=== PATIENT | female | born 1990 | race Caucasian/White ===

== ENCOUNTER 2016-09-14 11:42 | Inpatient (IN) | payer OTHER ==
[2016-09-14] VITALS (12 sets, daily range): BP systolic 117–136; BP diastolic 57–81
[~2016-09-14] VITALS: Ht 167.6 cm; Wt 108.2 kg
[~2016-09-14 11:42] MED LIST: ADVAIR 100-501 EACH IH; MOTRIN800 MG PO; PERCOCET 5/31 TABLET PO; PRENATAL TABLE1 EAC3 PO; PROAIR HFA8.5 GM IH; SINGULAIR10 MG PO
[2016-09-14 12:38] LABS: EOSINOPHIL (%) 0.8 % (0-5); EOSINOPHIL COUNT 0.1 K/uL (0-0.3); HEMATOCRIT 37.6 % (36.0-46.0); IMMATURE GRANULOCYTE (%) 0.5 % (0.0-0.7); IMMATURE GRANULOCYTE COUNT 0.1 K/uL; INSTRUMENT ABS NEUTROPHIL CT 7.2 K/uL; LYMPHOCYTE COUNT 1.6 K/uL (1.0-2.8); MCH 28.7 PG (29.0-34.0); MCHC 33.5 G/DL (30.0-36.0); MCV 85.6 FL (83-99); MEAN PLAT.VOLUME 9.4 uM^3 (9.5-12.4); MONOCYTE (%) 5.8 % (3-12); MONOCYTE COUNT 0.6 K/uL (0-0.8); NEUTROPHIL (%) 75.6 % (45-76); NEUTROPHIL COUNT 7.2 K/uL (1.8-6.4); PLATELET COUNT 217 K/uL (156-360); RBC DIS.WIDTH-CV 14.8 % (11.8-14.6); RBC DIS.WIDTH-SD 45.3 % (39-53); RED BLOOD COUNT 4.39 M/uL (3.80-5.20); WHITE BLOOD COUNT 9.6 K/uL (4.1-10.2)
[2016-09-14 13:38] LABS: ALKALINE PHOSPHATASE 144 IU/L (3-129); ANION GAP 7 MEQ/L (2-14); CHLORIDE 108 MEQ/L (99-109); GFR ESTIMATE (CALCULATED) > 59 mL/min/; GLUCOSE 74 mg/dL (70-99); POTASSIUM 4.3 MEQ/L (3.7-5.4); SAMPLE HEMOLYSIS CHECK 0; SAMPLE ICTERIC CHECK 0; SAMPLE LIPEMIA CHECK 0; SODIUM 137 MEQ/L (136-147); TOTAL BILIRUBIN 0.4 MG/DL (0.0-1.0); UREA NITROGEN (BUN) 7 mg/dL (9-23)
[2016-09-14 17:45] LABS: UR CREATININE CONCENTRATION 55.9 MG/DL
[2016-09-15] VITALS (33 sets, daily range): BP systolic 107–147; BP diastolic 58–91
[2016-09-15] MEDS ORDERED: IBUPROFEN800 MG PO (17:44)
== END 2016-09-16 20:25 | disposition home or self-care (01) | DRG 775 ==
LOC: LDRP-OP 11:42 → 2WEST 11:43
PROVIDERS: Obstetrics & Gynecology
PROC: 3E0P7GC Introduction of Other Therapeutic Substance into Female Reproductive, Via Natural or Artificial Opening (ICD-10-PCS; principal; 2016-09-14)
PROC: 0U7C7ZZ Dilation of Cervix, Via Natural or Artificial Opening (ICD-10-PCS; 2016-09-15)
PROC: 3E0S3CZ (ICD-10-PCS; 2016-09-15)
PROC: 00HU33Z Insertion of Infusion Device into Spinal Canal, Percutaneous Approach (ICD-10-PCS; 2016-09-15)
PROC: 10907ZC Drainage of Amniotic Fluid, Therapeutic from Products of Conception, Via Natural or Artificial Opening (ICD-10-PCS; 2016-09-15)
PROC: 10E0XZZ Delivery of Products of Conception, External Approach (ICD-10-PCS; 2016-09-15)
DX: O36.5130 Maternal care for known or suspected placental insufficiency, third trimester, not applicable or unspecified (principal); E66.9 Obesity, unspecified; O36.8130 Decreased fetal movements, third trimester, not applicable or unspecified; Z37.0 Single live birth; O99.214 Obesity complicating childbirth; Z3A.40 40 weeks gestation of pregnancy; Z68.30 Body mass index [BMI] 30.0-30.9, adult; O99.52 Diseases of the respiratory system complicating childbirth; O70.0 First degree perineal laceration during delivery; J45.909 Unspecified asthma, uncomplicated
CPT/HCPCS: 80053; 82570; 84156; 85025; 86900; 86901; C1755; G0378; J0595; J3010; J7120; Q0169